=== PATIENT | male | born 1980 | race Asian ===

== ENCOUNTER 2024-10-16 14:28 | Emergency (ER) | payer SELFPAY ==
[~2024-10-16] VITALS: Ht 175.3 cm; Wt 72.6 kg
[2024-10-16 14:39] VITALS: O2SAT 98
[2024-10-16 15:38] LABS: HEMOGLOBIN. 16.1 g/dL (14.0-18.0); MEAN CORPUSCULAR HEMOGLOBIN 31.7 pg (28.0-32.0); MEAN CORPUSCULAR HGB CONC 33.5 g/dL (31.0-37.0); MEAN CORPUSCULAR VOLUME 94.6 fL (80.0-94.0); MEAN PLATELET VOLUME 7.8 fl (7.4-10.4); PLATELET 175 x1000/uL (130-400); RED BLOOD CELL COUNT 5.08 mill/uL (4.7-6.1); RED CELL DISTRIBUTION WIDTH 12.8 % (11.6-14.6); WHITE BLOOD COUNT 3.6 x1000/uL (4.5-11.0)
[2024-10-16 15:39] LABS: DIFFERENTIAL COMMENT 1
[2024-10-16 15:56] LABS: CHLORIDE 101 mEq/L (98-107); POTASSIUM 4.1 mEq/L (3.5-5.1); SODIUM 136 mEq/L (136-145)
[2024-10-16 15:57] LABS: CARBON DIOXIDE 26 mEq/L (21-32)
[2024-10-16 15:58] LABS: CALCIUM 9.1 mg/dL (8.7-10.4)
[2024-10-16 16:02] LABS: CREATININE 1.2 mg/dL (0.6-1.3)
[2024-10-16 16:03] LABS: GLUCOSE 99 mg/dL (70-105); UREA NITROGEN BLOOD 29 mg/dL (9-23)
[2024-10-16 16:04] LABS: ALANINE AMINOTRANSFERASE 16 IU/L (10-49); ALBUMIN 4.6 g/dL (3.2-4.8); ASPARTATE AMINOTRANSFERASE 20 IU/L (<34)
[2024-10-16 16:05] LABS: BILIRUBIN DIRECT 0.2 mg/dL (<=3.0); BILIRUBIN TOTAL 0.8 mg/dL (0.1-1.0); PROTEIN TOTAL 8.1 g/dL (6.0-8.3)
[2024-10-16] MEDS ORDERED: LOPE2TAB24 MT (16:33)
[2024-10-16] MEDS ORDERED: ONDA-239 PO (16:33)
[2024-10-16] MEDS ORDERED: LACT1CAP68 MT (16:36)
[2024-10-16] MEDS: LOPERAMIDE HCL 2MG CAPSULE PO ONE (16:39)
[2024-10-16] MEDS: ONDANSETRON 4MG ODT PO ONE (16:39)
[2024-10-16 16:43] VITALS: BP 131/95; PULSE 85; RESP 20; TEMP 36.7; O2SAT 98
[2024-10-16 16:48] LABS: CLARITY URINE CLEAR (CLEAR); COLOR URINE DARK YELLOW (YELLOW); GLUCOSE URINE NEGATIVE (NEGATIVE); KETONES URINE 1+ (NEGATIVE); LEUKOCYTE ESTERASE URINE NEGATIVE (NEGATIVE); NITRITE URINE NEGATIVE (NEGATIVE); OCCULT BLOOD URINE 2+ (NEGATIVE); PROTEIN URINE 2+ (NEGATIVE); SPECIFIC GRAVITY URINE 1.038 (1.005-1.030)
[2024-10-16 17:17] LABS: BACTERIA URINE 1+; SQUAMOUS EPITHELIAL CELL URINE FEW /lpf (RARE/1+); WBC URINE 0-2 /hpf (0-2)
[2024-10-16 19:56] LABS: GIANT PLATELETS FEW; PLATELET ESTIMATE NORMAL; PLATELET SATELLITISM 1+
== END 2024-10-16 16:45 | disposition home or self-care (01) ==
LOC: ER 14:49
DX: R19.7 Diarrhea, unspecified (principal)
CPT/HCPCS: 99283; 80076; 80048; 81003; 85025; 36415; Q0162